=== PATIENT | male | born 2000 | race Two or more races ===

== ENCOUNTER 2025-04-20 11:54 | Emergency (ER) | payer BC ==
[~2025-04-20] VITALS: Ht 175.3 cm; Wt 68.9 kg
[2025-04-20] MEDS ORDERED: DIPHENHYDRAMINE HCL 50 MG/ML VIAL 1ML ONE (12:27)
[2025-04-20] MEDS ORDERED: KETOROLAC TROMETHAMINE 60 MG VIAL IM ONE ×2 (12:28→12:30)
[2025-04-20] MEDS ORDERED: DIPHENHYDRAMINE HCL 50 MG/ML VIAL 1ML IM ONE (12:30)
== END 2025-04-20 13:26 | disposition home or self-care (01) ==
LOC: ER 11:54
DX: L55.1 Sunburn of second degree (principal)